=== PATIENT | male | born 1990 | race Caucasian/White ===

== ENCOUNTER 2021-01-09 21:40 | Emergency (ER) | payer OTHER, SELFPAY ==
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
[2021-01-09 21:22] VITALS: BP 121/67; PULSE 73; RESP 16; TEMP 36.6; O2SAT 100
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
[2021-01-09 22:00] VITALS: BP 144/74; PULSE 80; RESP 16; O2SAT 99
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
[2021-01-09 22:45] VITALS: BP 135/74; PULSE 70; RESP 16; O2SAT 100
[2021-01-09] MEDS: Acetaminophen 500 MG TAB (22:45)
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
== END 2021-01-09 23:10 | disposition home or self-care (01) ==
PROVIDERS: Emergency Provider Physician Assistant
DX: S06.891A Other specified intracranial injury with loss of consciousness of 30 minutes or less, initial encounter (principal); F07.81 Postconcussional syndrome; S30.0XXA Contusion of lower back and pelvis, initial encounter; R40.2412 Glasgow coma scale score 13-15, at arrival to emergency department; V19.3XXA Pedal cyclist (driver) (passenger) injured in unspecified nontraffic accident, initial encounter
CPT/HCPCS: 99284; 70450; 72125; 72131